=== PATIENT | female | born 1975 | race Caucasian/White ===

== ENCOUNTER 2024-03-31 08:52 | Emergency (ER) | payer OTHER ==
[~2024-03-31] VITALS: Ht 170.2 cm; Wt 86.2 kg
[~2024-03-31 08:52] MED LIST: ACET325 PO; ACETAMINOPHEN; AMOX500 PO; ASPI325B PO; CEPH250A; CEPH500 PO; CIPR250 PO; CLIN150 PO; CODGUAEL PO; CYCL10 PO; DICY20 PO; DOC250 PO; ESCI10; Esgic Tablet1 EACH PO; GABA100 PO; HYDACE5 PO; HYDACE5325 PO; HYDGUAL120 PO; IBUP600 PO; IBUP800; IBUP800 PO; IBUPROFEN; KETO75 PO; LORA2 PO; MEDR5 PO; METPRE4DP PO; NAPR500 PO; Norco 5-325 Ta1 EACH PO; ONDA4 PO; OXYACE10 PO; OXYACE5T; OXYACE5T PO; PENVK500 PO; PROM25 PO; RANI150 PO; RXCLIN PO; RXHYDACE PO; RXONDA4ODT MM; RXOXYACE PO; Robaxin500 MG PO; SULTRIDS PO; TOPI25 PO; TRAM50; TRAM50 PO; YAZ BCP; [UNRECOGNIZED DRUG - OTHER]
[2024-03-31] MEDS ORDERED: Ketorolac Tromethamine 15mg Vial IV ONE (09:30)
[2024-03-31 10:07] LABS: BASOPHILS ABSOLUTE AUTO 0.03 K/mm3 (0.00-0.23); BASOPHILS PERCENT AUTO 0 % (0-2); EOSINOPHILS ABSOLUTE AUTO 0.06 K/mm3 (0.00-0.68); EOSINOPHILS PERCENT AUTO 1 % (0-6); Hematocrit 43.7 % (33.0-51.0); Hemoglobin 14.6 g/dL (11.5-16.0); IMMATURE GRAN ABSOLUTE AUTO 0.01 K/mm3 (0.00-0.10); IMMATURE GRAN PERCENT AUTO 0 % (0-1); LYMPHOCYTES ABSOLUTE AUTO 2.92 K/mm3 (0.84-5.20); LYMPHOCYTES PERCENT AUTO 39 % (21-46); MONOCYTES ABSOLUTE AUTO 0.58 K/mm3 (0.16-1.47); MONOCYTES PERCENT AUTO 8 % (4-13); Mean Corpuscular HGB 31.1 pg (26.0-34.0); Mean Corpuscular HGB Conc 33.4 g/dL (31.5-36.5); Mean Corpuscular Volume 93 fL (80-100); Mean Platelet Volume 10.1 fL (9.1-12.4); NEUTROPHILS ABSOLUTE AUTO 3.97 K/mm3 (1.96-9.15); NEUTROPHILS PERCENT AUTO 52 % (41-73); Platelet Count 303 K/mm3 (150-400); RDW Coefficient Variation 12.3 % (11.7-14.2); RDW Standard Deviation 42.5 fL (35.1-46.3); White Blood Cell Count 7.57 K/mm3 (4.00-11.30)
[2024-03-31 10:30] LABS: Albumin, Blood 3.7 g/dL (3.4-5.0); Bilirubin, Total 0.5 mg/dL (0.1-1.0); Bun/Creatinine Ratio 20.2 (12.0-20.0); C-REACTIVE PROTEIN, EXT RANGE 0.315 mg/dL (0.000-0.300); Calcium, Blood 9.4 mg/dL (8.5-10.1); Creatinine, Blood 0.6 mg/dL (0.40-1.00); Globulin, Blood 3.6 g/dL (2.2-4.0); Magnesium, Blood 2.3 mg/dL (1.6-2.4); Potassium, Blood 4.3 mmol/L (3.5-5.5); Total Protein, Blood 7.3 g/dL (6.4-8.2)
[2024-03-31 11:27] LABS: Influenza A, PCR NEGATIVE (NEGATIVE); Influenza B, PCR NEGATIVE (NEGATIVE); Resp Syncytial Virus, PCR NEGATIVE (NEGATIVE); SARS-Cov-2 (COVID-19) PCR, MMC NEGATIVE (NEGATIVE)
[2024-03-31 12:00] VITALS: BP 120/85
== END 2024-03-31 12:43 | disposition home or self-care (01) ==
LOC: ER 08:52
PROVIDERS: Physician Assistant
DX: J02.9 Acute pharyngitis, unspecified (principal)
CPT/HCPCS: 0241U; 70491; 80053; 83735; 85025; 86140; 87081; 87430; 96374-59; 99283-25; J1885; Q9967

== ENCOUNTER 2024-06-17 09:31 | Emergency (ER) | payer OTHER ==
[~2024-06-17] VITALS: Ht 170.2 cm; Wt 86.2 kg
[2024-06-17] MEDS ORDERED: Ketorolac Tromethamine 15mg Vial IV ONE (10:10)
[2024-06-17 10:57] LABS: BASOPHILS ABSOLUTE AUTO 0.04 K/mm3 (0.00-0.23); BASOPHILS PERCENT AUTO 1 % (0-2); EOSINOPHILS ABSOLUTE AUTO 0.04 K/mm3 (0.00-0.68); EOSINOPHILS PERCENT AUTO 1 % (0-6); Hematocrit 45.7 % (33.0-51.0); Hemoglobin 15.7 g/dL (11.5-16.0); IMMATURE GRAN ABSOLUTE AUTO 0.02 K/mm3 (0.00-0.10); IMMATURE GRAN PERCENT AUTO 0 % (0-1); LYMPHOCYTES ABSOLUTE AUTO 3.14 K/mm3 (0.84-5.20); LYMPHOCYTES PERCENT AUTO 41 % (21-46); MONOCYTES ABSOLUTE AUTO 0.43 K/mm3 (0.16-1.47); MONOCYTES PERCENT AUTO 6 % (4-13); Mean Corpuscular HGB 32.2 pg (26.0-34.0); Mean Corpuscular HGB Conc 34.4 g/dL (31.5-36.5); Mean Corpuscular Volume 94 fL (80-100); Mean Platelet Volume 9.6 fL (9.1-12.4); NEUTROPHILS ABSOLUTE AUTO 4.04 K/mm3 (1.96-9.15); NEUTROPHILS PERCENT AUTO 52 % (41-73); Platelet Count 271 K/mm3 (150-400); RDW Standard Deviation 41.8 fL (35.1-46.3); Red Blood Cell Count 4.88 M/mm3 (3.80-5.20); White Blood Cell Count 7.71 K/mm3 (4.00-11.30)
[2024-06-17 11:51] LABS: Albumin, Blood 3.4 g/dL (3.4-5.0); Bilirubin, Total 0.5 mg/dL (0.1-1.0); Creatinine, Blood 0.69 mg/dL (0.40-1.00); Globulin, Blood 3.5 g/dL (2.2-4.0); Potassium, Blood 4.1 mmol/L (3.5-5.5); Thyroid Stimulating Hormone 1.74 uIU/mL (0.360-4.800); Total Protein, Blood 6.9 g/dL (6.4-8.2)
[2024-06-17 12:03] VITALS: BP 106/60
== END 2024-06-17 12:10 | disposition home or self-care (01) ==
LOC: ER 09:31
PROVIDERS: Emergency Medicine
DX: B34.9 Viral infection, unspecified (principal)
CPT/HCPCS: 80053; 82550; 84443; 85025; 96374; 99283-25; J1885

== ENCOUNTER 2024-08-04 11:41 | Emergency (ER) | payer OTHER ==
[~2024-08-04] VITALS: Ht 170.2 cm; Wt 88.5 kg
[2024-08-04 11:48] VITALS: BP 146/91
[2024-08-04] MEDS ORDERED: Diphth,Pertuss(Acell),Tet Vac 0.5 ML VIAL IM ONE (14:45)
[2024-08-04] MEDS ORDERED: Ibuprofen 600 MG Tab PO ONE (14:45)
[2024-08-04] MEDS ORDERED: Doxycycline Hyclate 100 MG TAB PO ONE (14:45)
[2024-08-04] MEDS ORDERED: ACET500 PO (14:46)
[2024-08-04] MEDS ORDERED: IBUP600 PO (14:46)
== END 2024-08-04 15:15 | disposition home or self-care (01) ==
LOC: ER 11:41
DX: S80.862A Insect bite (nonvenomous), left lower leg, initial encounter (principal); R21 Rash and other nonspecific skin eruption; W57.XXXA Bitten or stung by nonvenomous insect and other nonvenomous arthropods, initial encounter
CPT/HCPCS: 90471; 90715; 99282-25; A9270

== ENCOUNTER 2024-08-13 21:32 | Emergency (ER) | payer OTHER ==
[~2024-08-13] VITALS: Ht 170.2 cm; Wt 86.2 kg
[~2024-08-13 21:32] MED LIST changes: +ACET500 PO
[2024-08-13 21:41] VITALS: BP 127/68
[2024-08-13] MEDS ORDERED: Vibramycin100 MG PO (22:24)
== END 2024-08-13 22:26 | disposition home or self-care (01) ==
LOC: ER 21:32
DX: L02.416 Cutaneous abscess of left lower limb (principal); L03.116 Cellulitis of left lower limb; S80.862A Insect bite (nonvenomous), left lower leg, initial encounter; F17.200 Nicotine dependence, unspecified, uncomplicated; W57.XXXA Bitten or stung by nonvenomous insect and other nonvenomous arthropods, initial encounter
CPT/HCPCS: 10061; 99283-25

== ENCOUNTER 2024-11-03 08:14 | Observation (INO) | payer OTHER ==
[~2024-11-03] VITALS: Ht 170.2 cm; Wt 87.9 kg
[~2024-11-03 08:14] MED LIST changes: +Vibramycin100 MG PO
[2024-11-03 09:12] LABS: BASOPHILS ABSOLUTE AUTO 0.04 K/mm3 (0.00-0.23); BASOPHILS PERCENT AUTO 1 % (0-2); EOSINOPHILS ABSOLUTE AUTO 0.07 K/mm3 (0.00-0.68); EOSINOPHILS PERCENT AUTO 1 % (0-6); Hematocrit 44.6 % (33.0-51.0); Hemoglobin 15.2 g/dL (11.5-16.0); IMMATURE GRAN ABSOLUTE AUTO 0.01 K/mm3 (0.00-0.10); IMMATURE GRAN PERCENT AUTO 0 % (0-1); LYMPHOCYTES ABSOLUTE AUTO 2.94 K/mm3 (0.84-5.20); LYMPHOCYTES PERCENT AUTO 40 % (21-46); MONOCYTES ABSOLUTE AUTO 0.46 K/mm3 (0.16-1.47); MONOCYTES PERCENT AUTO 6 % (4-13); Mean Corpuscular HGB 31.7 pg (26.0-34.0); Mean Corpuscular HGB Conc 34.1 g/dL (31.5-36.5); Mean Corpuscular Volume 93 fL (80-100); Mean Platelet Volume 9.7 fL (9.1-12.4); NEUTROPHILS ABSOLUTE AUTO 3.76 K/mm3 (1.96-9.15); NEUTROPHILS PERCENT AUTO 52 % (41-73); Platelet Count 293 K/mm3 (150-400); RDW Coefficient Variation 11.7 % (11.7-14.2); Red Blood Cell Count 4.79 M/mm3 (3.80-5.20); White Blood Cell Count 7.28 K/mm3 (4.00-11.30)
[2024-11-03 09:28] LABS: Albumin, Blood 3.6 g/dL (3.4-5.0); Bilirubin, Total 0.4 mg/dL (0.1-1.0); Bun/Creatinine Ratio 20.7 (12.0-20.0); Creatinine, Blood 0.63 mg/dL (0.40-1.00); Globulin, Blood 3.7 g/dL (2.2-4.0); Potassium, Blood 4.4 mmol/L (3.5-5.5); Total Protein, Blood 7.3 g/dL (6.4-8.2)
[2024-11-03 12:02] LABS: Influenza A, PCR NEGATIVE (NEGATIVE); Influenza B, PCR NEGATIVE (NEGATIVE); Resp Syncytial Virus, PCR NEGATIVE (NEGATIVE); SARS-Cov-2 (COVID-19) PCR, MMC NEGATIVE (NEGATIVE)
[2024-11-03] MEDS ORDERED: Ketorolac Tromethamine 15mg Vial IV ONE ×2 (12:20→19:00)
[2024-11-03] MEDS ORDERED: Acetaminophen 500 MG Tab PO ONE (12:20)
[2024-11-03 15:41] LABS: Prothrombin Time Results 10.7 Sec (9.7-11.5)
[2024-11-03 17:53] LABS: Glucose, CSF 57 mg/dL (40-70)
[2024-11-03 18:07] LABS: Appearance, CSF Clear (Clear); Color, CSF No Color (No Color)
[2024-11-03 18:09] LABS: RBC Count, CSF 20 /mm3 (0-0); WBC Count, CSF 0 /mm3 (0-5)
[2024-11-03] MEDS ORDERED: Ondansetron HCl 2 MG / ML 2ML Vial IV PRN (18:25)
[2024-11-03] MEDS ORDERED: CefTRIAXone Sodium 2,000 MG in NS 100 ML IV ONE (18:35)
[2024-11-03] MEDS ORDERED: NS 1,000 ML IV ONE (19:00)
[2024-11-03] MEDS ORDERED: NS 1,000 ML IV SCH (19:30)
[2024-11-03 20:27] VITALS: BP 110/56
[2024-11-03] MEDS ORDERED: Amoxicillin 500 MG Cap PO SCH (21:00)
[2024-11-03] MEDS ORDERED: Lactobacil 2-S.Thermo-Bifido 1 1 Cap PO SCH (21:00)
[2024-11-03] MEDS ORDERED: OxyCODONE 5 mg/Acetamin 325 mg TABLET PO PRN (21:25)
[2024-11-04] MEDS ORDERED: Acetaminophen 325 MG TABLET PO PRN (00:30)
[2024-11-04 02:16] VITALS: BP 109/57
[2024-11-04 04:47] LABS: Hematocrit 38.6 % (33.0-51.0); Hemoglobin 13.3 g/dL (11.5-16.0); Mean Corpuscular HGB Conc 34.5 g/dL (31.5-36.5); Mean Corpuscular Volume 93 fL (80-100); Mean Platelet Volume 9.8 fL (9.1-12.4); Platelet Count 266 K/mm3 (150-400); RDW Coefficient Variation 11.7 % (11.7-14.2); RDW Standard Deviation 39.9 fL (35.1-46.3); Red Blood Cell Count 4.16 M/mm3 (3.80-5.20)
[2024-11-04 05:02] LABS: Bun/Creatinine Ratio 29.3 (12.0-20.0); Calcium, Blood 8.7 mg/dL (8.5-10.1); Creatinine, Blood 0.65 mg/dL (0.40-1.00); Potassium, Blood 4.1 mmol/L (3.5-5.5)
--- NOTE | 2024-11-04 05:06 | NUR ---
SHIFT SUMMARY NOC PT A/O X 4. INDEPENDENT/CONTINENT, PLEASANT AND COOPERATIVE WITH CARE. ADMIT FROM ED WITH NECK STIFFNESS AND TICK BITE, FOR R/O OF LYME DISEASE/MENINGITIS. R/O LABS ARE STILL PENDING AND PT IS ON DROPLET ISOLATION. PT HAS C/O OF NECK AND LOWER BACK PAIN FROM TWO LUMBAR PUNCTURE SITES FOR CSF DRAW. PAIN AND NAUSEA BEING MANAGED PER EMAR. PT BP ALSO SOFT AND IS RECEIVING IVF RECSUCITATION @ 100 ML/HR. PT CURRENTLY RESTING WITH BED IN LOWEST POSITION, AND CALL LIGHT WITHIN REACH.
[2024-11-04 05:13] VITALS: BP 113/85
[2024-11-04] MEDS ORDERED: Calcium Carbonate 500 MG Tab Chew PO PRN (05:50)
--- NOTE | 2024-11-04 05:51 | NUR ---
PT HAD C/O OF EPIGASTRIC PAIN THAT PT STATED FELT LIKE "HEARTBURN", PT ALSO REPORTED NOT EATING FOR LAST FEW DAYS BEFORE EATING A SANDWICH, CRACKERS, AND YOUGURT. PT GIVEN ZOFRAN FOR N/V, WHICH RELIEVED SYMPTOMS. VSS. HOSPITALIST NOTIFIED AND ORDER FOR TUMS Q4P GIVEN.
[2024-11-04 06:33] LABS: Cryptococcus Neoformans/Gattii Not Detected (NOT DETECT); Enterovirus Not Detected (NOT DETECT); Escherichia Coli K1 Not Detected (NOT DETECT); Haemophilus Influenza Not Detected (NOT DETECT); Herpes Simplex Virus 1 Not Detected (NOT DETECT); Herpes Simplex Virus 2 Not Detected (NOT DETECT); Human Herpesvirus 6 Not Detected (NOT DETECT); Human Parechovirus Not Detected (NOT DETECT); Listeria Monocytogenes Not Detected (NOT DETECT); Neisseria Meningitidis Not Detected (NOT DETECT); Streptococcus Agalactiae Not Detected (NOT DETECT); Streptococcus Pneumoniae Not Detected (NOT DETECT); Varicella Zoster Virus Not Detected (NOT DETECT)
[2024-11-04 07:53] VITALS: BP 125/85
[2024-11-04] MEDS ORDERED: Polyethylene Glycol 3350 17 gm PO SCH (08:40)
[2024-11-04] MEDS ORDERED: Ondansetron HCl 2 MG / ML 2ML Vial IV PRN (08:45)
[2024-11-04] MEDS ORDERED: Enoxaparin 40 MG/0.4 ML SYR SC SCH (09:00)
[2024-11-04] MEDS ORDERED: Sertraline HCl 50 MG Tab PO SCH (12:00)
[2024-11-04] MEDS ORDERED: SERT25 PO (12:45)
--- NOTE | 2024-11-04 14:40 | NUR ---
pt was discharged with insructions. all piv's remvoed. pt has no questions or concerns at this time
[2024-11-06 04:33] LABS: ANTI-NUCLEAR AB ANA,IGG ELISA None Detected (None Detected)
[2024-11-06 13:59] LABS: LYME VLSE1/PEPC10 ABS, ELISA 0.21 IV (<=0.90)
== END 2024-11-04 14:40 | disposition home or self-care (01) ==
LOC: ER 08:14 → MEDS 08:15 → ERHOLD 08:15 → MEDS 20:16 → ENPENDDIS 11-04 11:49 → MEDS 11-04 14:40
PROVIDERS: Nurse Practitioner Acute Care; Student in an Organized Health Care Education/Training Program; ADMIT Internal Medicine
DX: M43.6 Torticollis (principal); F17.210 Nicotine dependence, cigarettes, uncomplicated; R51.9 Headache, unspecified; A69.20 Lyme disease, unspecified; E86.1 Hypovolemia; E87.0 Hyperosmolality and hypernatremia
CPT/HCPCS: 0241U; 36415; 62270; 62328; 70450; 80048; 80053; 82945; 83735; 84157; 84443; 85025; 85027; 85610; 85651; 85730; 86038; 86140; 86617; 86618; 87070; 87205; 87483; 89051; 96372; 96374-59; 96375; 96376; 99284-25; A9270; G0378; J0696; J1650; J1885; J2405; J7030

== ENCOUNTER → 2024-12-21 | Outpatient (CLI) | payer OTHER ==
[~2024-12-21] MED LIST changes: +SERT25 PO
[2024-12-21 12:08] LABS: Alanine Aminotransfer (ALT/SGP 27 U/L (12-78); Albumin, Blood 3.5 g/dL (3.4-5.0); Alk Phos 76 U/L (50-136); Anion Gap 7 mmol/L (3-11); Aspartate Aminotrans (AST/SGOT 16 U/L (12-37); Bilirubin, Total 0.2 mg/dL (0.1-1.0); Blood Urea Nitrogen 12 mg/dL (8-24); Bun/Creatinine Ratio 16.6 (12.0-20.0); C-REACTIVE PROTEIN, EXT RANGE <0.290 mg/dL (0.000-0.300); CO2, Blood 26 mmol/L (21-32); Chloride, Blood 109 mmol/L (98-108); Creatinine, Blood 0.72 mg/dL (0.40-1.00); Globulin, Blood 3.4 g/dL (2.2-4.0); Glomerular Filtration Rate 104 (60-); Glucose, Blood 94 mg/dL (70-99); Potassium, Blood 3.9 mmol/L (3.5-5.5); Sodium, Blood 138 mmol/L (136-145); Total Protein, Blood 6.9 g/dL (6.4-8.2)
[2024-12-22 16:18] LABS: HEPATITIS C AB CIA INTERP Negative (Negative); HEPATITIS C ANTIBODY CIA INDEX 0.04 IV
[2024-12-23 09:18] LABS: HIV 1,2 COMBO ANTIGEN/ANTIBODY Negative (Negative)
== END | disposition home or self-care (01) ==
LOC: LAB 08:54 → LAB SHORT 08:54
PROVIDERS: Student in an Organized Health Care Education/Training Program
DX: Z11.4 Encounter for screening for human immunodeficiency virus [HIV] (principal); Z11.59 Encounter for screening for other viral diseases; R61 Generalized hyperhidrosis
CPT/HCPCS: 36415; 80053; 86140; 86803; 87389